=== PATIENT | female | born 1965 | race African-American/Black ===

== ENCOUNTER 2022-02-18 18:50 | Inpatient (IN) | payer BC ==
[~2022-02-18] VITALS: Ht 170.2 cm; Wt 108.9 kg
[2022-02-18] MEDS ORDERED: ONDANSETRON HCL 4MG/2ML INJ IV STA (20:00)
[2022-02-18] MEDS ORDERED: SODIUM CHLORIDE 0.9% 1,000 ML IV ONE (20:00)
[2022-02-18 21:42] LABS: HEMATOCRIT. 40.1 % (36.0-48.0); HEMOGLOBIN. 13.1 g/dL (12.0-16.0); MEAN CORPUSCULAR HEMOGLOBIN 31.9 pg (28.0-32.0); MEAN CORPUSCULAR VOLUME 97.4 fL (81.0-99.0); MEAN PLATELET VOLUME 7.3 fl (7.4-10.4); PLATELET 404 x1000/uL (130-400); RED BLOOD CELL COUNT 4.11 mill/uL (4.2-5.4); RED CELL DISTRIBUTION WIDTH 14.2 % (11.6-14.6)
[2022-02-18 21:45] LABS: CHLORIDE 98 mEq/L (98-107)
[2022-02-18] MEDS ORDERED: ONDANSETRON HCL 4MG/2ML INJ IV NR (21:45)
[2022-02-18 21:47] LABS: HCG SCREEN NEGATIVE
[2022-02-18 21:52] LABS: ETHANOL BLOOD < 10 mg/dL
[2022-02-18] MEDS ORDERED: POTASSIUM CHLORIDE 20MEQ TABLET SR PO ONE (22:15)
[2022-02-18] MEDS ORDERED: KCL 20MEQ/100ML PREMIX 100 ML IV ONE (22:15)
[2022-02-18] MEDS ORDERED: MAGNESIUM 1 G PREMIX 100 ML IV ONE (22:15)
[2022-02-18 22:23] LABS: PLATELET ESTIMATE INCREASED
[2022-02-18] MEDS ORDERED: CEFTRIAXONE 1 G PREMIX 50 ML IV ONE (23:00)
[2022-02-18] MEDS ORDERED: AZITHROMYCIN 500MG/250ML 250 ML IV ONE (23:00)
[2022-02-18] MEDS ORDERED: SODIUM CHLORIDE 0.9% 1000ML BAG (SEPSIS BOLUS) IV ONE (23:00)
[2022-02-18 23:38] LABS: CLARITY URINE CLEAR (CLEAR); COLOR URINE DARK YELLOW (YELLOW); KETONES URINE 2+ (NEGATIVE); LEUKOCYTE ESTERASE URINE 1+ (NEGATIVE); NITRITE URINE NEGATIVE (NEGATIVE); OCCULT BLOOD URINE TRACE (NEGATIVE); PH URINE 5.5 (4.5-8.0); PROTEIN URINE 2+ (NEGATIVE); SPECIFIC GRAVITY URINE 1.032 (1.005-1.030)
[2022-02-19] MEDS ORDERED: MAGNESIUM/ALUMINUM HYDROXIDE/SIMETHICONE 30ML UDC PO PRN (00:15)
[2022-02-19] MEDS ORDERED: ONDANSETRON HCL 4MG/2ML INJ IV PRN (00:15)
[2022-02-19] MEDS ORDERED: CLONIDINE 0.1MG TABLET PO PRN (00:15)
[2022-02-19] MEDS ORDERED: ACETAMINOPHEN 325MG TABLET PO PRN (00:15)
[2022-02-19] MEDS ORDERED: IPRATROPIUM/ALBUTEROL 0.5-3(2.5)MG/3ML NEB NEB PRN (00:15)
[2022-02-19] MEDS ORDERED: CEFTRIAXONE 1 G PREMIX 50 ML IV SCH (00:15)
[2022-02-19] MEDS ORDERED: GUAIFENESIN 200MG/10ML SUGAR FREE UDC PO PRN (00:15)
[2022-02-19] MEDS: AZITHROMYCIN 500 MG in DEXT 5% WATER 250 ML IV SCH (01:57)
[2022-02-19] MEDS: CEFTRIAXONE 1,000 MG in DEXTROSE 5% WATER 50 ML IV SCH (02:00)
[2022-02-19 03:14] LABS: CHLORIDE 100 mEq/L (98-107)
[2022-02-19 03:25] LABS: PHOSPHORUS 2.8 mg/dL (2.5-4.9)
[2022-02-19 05:47] LABS: HEMATOCRIT. 37.3 % (36.0-48.0); MEAN CORPUSCULAR HEMOGLOBIN 31.5 pg (28.0-32.0); MEAN CORPUSCULAR VOLUME 98.2 fL (81.0-99.0); MEAN PLATELET VOLUME 7.3 fl (7.4-10.4); PLATELET 357 x1000/uL (130-400); RED CELL DISTRIBUTION WIDTH 14.3 % (11.6-14.6)
[2022-02-19] MEDS: ACETAMINOPHEN 325MG TABLET PO PRN (06:59)
[2022-02-19] MEDS ORDERED: PROCHLORPERAZINE 10MG/2ML VIAL IV SCH (09:00)
[2022-02-19] MEDS ORDERED: DEXAMETHASONE 10 MG/ML VIAL IV SCH (09:00)
[2022-02-19] MEDS: KETOROLAC 30MG/ML VIAL IV SCH ×2 (09:50→17:32)
[2022-02-19] MEDS: ENOXAPARIN 30MG/0.3ML SYR SUBCUT SCH ×2 (09:50→21:07)
[2022-02-19] MEDS ORDERED: KCL 20MEQ/100ML PREMIX 100 ML IV SCH (10:00)
[2022-02-19] MEDS ORDERED: SODIUM CHLORIDE 0.9% 1,000 ML IV SCH (10:00)
[2022-02-19 10:05] VITALS: BP 122/78
[2022-02-19] MEDS ORDERED: DEXAMETHASONE 4MG/ML 1ML VIAL IV NR (10:30)
[2022-02-19 12:00] VITALS: BP 140/75
[2022-02-19 13:05] LABS: PLATELET ESTIMATE NORMAL
[2022-02-19] MEDS: KCL 20MEQ/100ML PREMIX 100 ML IV SCH ×2 (14:26→14:27)
[2022-02-19] MEDS ORDERED: DULO60CA64 PO (14:40)
[2022-02-19] MEDS ORDERED: PREG150C PO (14:40)
[2022-02-19] MEDS: DULOXETINE HCL 60MG DR CAPSULE PO SCH (14:48)
[2022-02-19 15:23] VITALS: BP 145/85
[2022-02-19] MEDS ORDERED: NALOXONE HCL 0.4MG/ML VIAL IV PRN (18:00)
[2022-02-19] MEDS: OXYCODONE HCL/ACETAMINOPHEN 5/325MG TABLET PO PRN (18:25)
[2022-02-19 20:00] VITALS: BP 143/79
[2022-02-19] MEDS: HYDROXYZINE 25MG TABLET PO PRN (21:07)
[2022-02-20] VITALS: BP 138/80
[2022-02-20 04:00] VITALS: BP 118/78
[2022-02-20] MEDS: CEFTRIAXONE 1,000 MG in DEXTROSE 5% WATER 50 ML IV SCH (05:05)
[2022-02-20] MEDS: AZITHROMYCIN 500 MG in DEXT 5% WATER 250 ML IV SCH (05:05)
[2022-02-20] MEDS: OXYCODONE HCL/ACETAMINOPHEN 5/325MG TABLET PO PRN ×2 (06:57→22:38)
[2022-02-20 08:00] VITALS: BP 118/69
[2022-02-20] MEDS: ENOXAPARIN 30MG/0.3ML SYR SUBCUT SCH ×2 (09:39→21:29)
[2022-02-20] MEDS: DULOXETINE HCL 60MG DR CAPSULE PO SCH (09:39)
[2022-02-20 11:31] LABS: BASOPHILS % 0.1 % (0.0-2.0); HEMATOCRIT. 32.7 % (36.0-48.0); HEMOGLOBIN. 10.7 g/dL (12.0-16.0); LYMPHOCYTES % 11.9 % (20.0-50.0); MEAN CORPUSCULAR HEMOGLOBIN 31.9 pg (28.0-32.0); MEAN CORPUSCULAR VOLUME 97.6 fL (81.0-99.0); MEAN PLATELET VOLUME 7.5 fl (7.4-10.4); MONOCYTES % 10.8 % (2.0-8.0); NEUTROPHILS % 77.2 % (40.0-76.0); PLATELET 354 x1000/uL (130-400); RED BLOOD CELL COUNT 3.35 mill/uL (4.2-5.4); RED CELL DISTRIBUTION WIDTH 14.2 % (11.6-14.6)
[2022-02-20 11:38] LABS: CHLORIDE 105 mEq/L (98-107)
[2022-02-20 11:45] LABS: PHOSPHORUS 1.7 mg/dL (2.5-4.9)
[2022-02-20 12:00] VITALS: BP 126/75
[2022-02-20] MEDS ORDERED: POTASSIUM-SODIUM PHOSPHATE POWDER PACKET PO NR (13:15)
[2022-02-20] MEDS ORDERED: KETOROLAC 30MG/ML VIAL IV NR (15:15)
[2022-02-20] MEDS ORDERED: VALS160T28 PO (15:58)
[2022-02-20] MEDS ORDERED: HYDR25TA PO (15:58)
[2022-02-20] MEDS ORDERED: AMLO5TAB88 PO (15:58)
[2022-02-20] MEDS ORDERED: OXYC-105 PO (15:58)
[2022-02-20] MEDS ORDERED: EXEM25TA PO (15:58)
[2022-02-20] MEDS ORDERED: TRAZ-251 PO (15:58)
[2022-02-20 16:00] VITALS: BP 131/78
[2022-02-20] MEDS: LOPERAMIDE HCL 2MG CAPSULE PO PRN (17:46)
[2022-02-20 20:00] VITALS: BP 116/72
[2022-02-20] MEDS: HYDROXYZINE 25MG TABLET PO PRN (21:29)
[2022-02-21] VITALS: BP 123/71
[2022-02-21] MEDS: AZITHROMYCIN 500 MG in DEXT 5% WATER 250 ML IV SCH (00:41)
[2022-02-21] MEDS: CEFTRIAXONE 1,000 MG in DEXTROSE 5% WATER 50 ML IV SCH (00:41)
[2022-02-21 04:00] VITALS: BP 135/89
[2022-02-21 08:00] VITALS: BP 133/81
[2022-02-21 08:31] LABS: BASOPHILS % 0.5 % (0.0-2.0); EOSINOPHILS % 0.7 % (0.0-5.0); HEMATOCRIT. 33.8 % (36.0-48.0); HEMOGLOBIN. 11.1 g/dL (12.0-16.0); LYMPHOCYTES % 26.9 % (20.0-50.0); MEAN CORPUSCULAR HEMOGLOBIN 32.3 pg (28.0-32.0); MEAN CORPUSCULAR VOLUME 98.4 fL (81.0-99.0); MEAN PLATELET VOLUME 7.7 fl (7.4-10.4); MONOCYTES % 10.6 % (2.0-8.0); NEUTROPHILS % 61.3 % (40.0-76.0); PLATELET 337 x1000/uL (130-400); RED BLOOD CELL COUNT 3.43 mill/uL (4.2-5.4); RED CELL DISTRIBUTION WIDTH 14.1 % (11.6-14.6)
[2022-02-21] MEDS: DULOXETINE HCL 60MG DR CAPSULE PO SCH (08:33)
[2022-02-21] MEDS: OXYCODONE HCL/ACETAMINOPHEN 5/325MG TABLET PO PRN (08:33)
[2022-02-21] MEDS: ENOXAPARIN 30MG/0.3ML SYR SUBCUT SCH ×2 (08:33→22:23)
[2022-02-21 08:52] LABS: CHLORIDE 105 mEq/L (98-107)
[2022-02-21 09:00] LABS: PHOSPHORUS 2.3 mg/dL (2.5-4.9)
[2022-02-21] MEDS ORDERED: POTASSIUM CHLORIDE 20MEQ TABLET SR PO NR (11:30)
[2022-02-21 12:00] VITALS: BP 134/79
[2022-02-21] MEDS ORDERED: TRAZODONE HCL 50MG TABLET PO PRN (12:00)
[2022-02-21] MEDS: LOPERAMIDE HCL 2MG CAPSULE PO PRN (14:15)
[2022-02-21] MEDS: OXYCODONE HCL 10MG TABLET SR 12HR PO PRN (15:30)
[2022-02-21 16:00] VITALS: BP 131/83
[2022-02-21 20:00] VITALS: BP 134/86
[2022-02-21] MEDS: ACETAMINOPHEN 325MG TABLET PO PRN (22:28)
[2022-02-22 00:07] VITALS: BP 110/52
[2022-02-22 04:00] VITALS: BP 114/74
[2022-02-22] MEDS: AZITHROMYCIN 500 MG in DEXT 5% WATER 250 ML IV SCH (04:24)
[2022-02-22] MEDS: CEFTRIAXONE 1,000 MG in DEXTROSE 5% WATER 50 ML IV SCH (04:24)
[2022-02-22] MEDS: OXYCODONE HCL 10MG TABLET SR 12HR PO PRN ×2 (06:29→15:42)
[2022-02-22 08:00] VITALS: BP 128/75
[2022-02-22] MEDS: DULOXETINE HCL 60MG DR CAPSULE PO SCH (09:16)
[2022-02-22] MEDS: ENOXAPARIN 30MG/0.3ML SYR SUBCUT SCH (09:16)
[2022-02-22] MEDS ORDERED: LOPERAMIDE HCL 2MG CAPSULE PO PRN (10:45)
[2022-02-22] MEDS ORDERED: LOPERAMIDE HCL 2MG CAPSULE PO NR (10:45)
[2022-02-22 12:00] VITALS: BP 151/90
[2022-02-22] MEDS ORDERED: AZIT500T8 PO ×2 (15:54)
[2022-02-22] MEDS ORDERED: VANC125C5 PO (15:54)
[2022-02-22] MEDS ORDERED: IMOD PO (15:54)
[2022-02-22] MEDS ORDERED: LEVO750T46 PO ×2 (15:58)
[2022-02-22 16:00] VITALS: BP 133/82
[2022-02-22] MEDS ORDERED: VANCOMYCIN HCL 1 GM/VIAL PO SCH (16:00)
[2022-02-22 16:13] VITALS: BP 133/82
[2022-02-22] MEDS ORDERED: VANCOMYCIN 1000MG/20ML ORAL SOLN PO SCH (18:00)
[2022-02-24 19:09] LABS: OVA & PARASITE EXAM Final report (.)
== END 2022-02-22 17:20 | disposition home or self-care (01) | DRG 871 ==
LOC: ER 18:50 → MICUSO 23:54 → SUPCPDRO 02-19 → 8WST 02-19 09:54
PROVIDERS: ADMIT Internal Medicine; ATTEND Internal Medicine
DX: A41.9 Sepsis, unspecified organism (principal); J18.9 Pneumonia, unspecified organism; E87.2 Acidosis; A04.72 Enterocolitis due to Clostridium difficile, not specified as recurrent; R65.20 Severe sepsis without septic shock; I10 Essential (primary) hypertension; C50.919 Malignant neoplasm of unspecified site of unspecified female breast; Z20.822 Contact with and (suspected) exposure to COVID-19; G89.3 Neoplasm related pain (acute) (chronic); M54.50 Low back pain, unspecified; E87.6 Hypokalemia; Z79.891 Long term (current) use of opiate analgesic
CPT/HCPCS: 36415; 71045; 80048; 80053; 80307; 80320; 80329; 81003; 83605; 83735; 83880; 84100; 84145; 84484; 84703; 85025; 87015; 87045; 87177; 87209; 87426; 87427; 87449; 87493; 93005; 99285; J0456; J0696; J0780; J1100; J1650; J1885; J2405; J3370; J3475; J3480; J7030; J7060; G0480